=== PATIENT | male | born 1985 | race Caucasian/White ===

== ENCOUNTER → 2018-04-24 | Outpatient (REF) | payer OTHER ==
[2018-04-24 22:09] LABS: APPEARANCE, URINE CLEAR (CLEAR); BACTERIA, URINE AUTO NEGATIVE (NEGATIVE); BILIRUBIN, URINE AUTO NEGATIVE (NEGATIVE); BLOOD, URINE BLOOD NEGATIVE (NEGATIVE); COLOR, URINE STRAW (YELLOW); GLUCOSE, URINE (UA) AUTO NEGATIVE (NEGATIVE); KETONE, URINE AUTO NEGATIVE (NEGATIVE); LEUKOCYTE ESTERASE, URINE AUTO NEGATIVE (NEGATIVE); NITRITE, URINE AUTO NEGATIVE (NEGATIVE); PROTEIN, URINE AUTO NEGATIVE (NEGATIVE); RBC, URINE AUTO 0 /HPF (0-3); SPECIFIC GRAVITY URINE AUTO 1.004 (1.002-1.035); SQUAMOUS EPITHELIAL CELL UR AU 0 /HPF (0-6); UROBILINOGEN, URINE AUTO 0.2 mg/dL (0.0-2.0); WBC, URINE AUTO 0 /HPF (0-3)
[2018-04-24 23:35] LABS: CHLAMYDIA DNA AMPLIFICATION NEGATIVE (NEGATIVE); GC DNA AMPLIFICATION NEGATIVE (NEGATIVE)
== END ==
LOC: M LAB REF 10:34
DX: N39.0 Urinary tract infection, site not specified (principal)

== ENCOUNTER → 2018-04-26 | Outpatient (REF) | payer BC | LOC: M LAB REF 13:10 | DX: N50.9 Disorder of male genital organs, unspecified (principal) | CPT/HCPCS: 87186 ==

== ENCOUNTER → 2019-08-30 | Outpatient (REF) | payer OTHER | LOC: M LAB REF 09:22 | PROVIDERS: ATTEND Physician Assistant Medical | DX: J02.0 Streptococcal pharyngitis (principal) ==

== ENCOUNTER 2020-04-01 15:34 | Emergency (ER) | payer OTHER, BC ==
[~2020-04-01] VITALS: Ht 180.3 cm; Wt 83.0 kg
[2020-04-01] MEDS ORDERED: BUPR300T92 (15:44)
[2020-04-01] MEDS ORDERED: ESCITALOPRAM (15:44)
--- NOTE | 2020-04-01 16:57 | REP ---
LEFT SHOULDER, THREE VIEWS: There is no evidence of an acute fracture, dislocation or intrinsic bone disease. IMPRESSION: No fracture or dislocation. Electronically Signed by Pedro Watters MD 04/01/2020 05:08 P
[2020-04-01] MEDS ORDERED: NAPR-837 PO (17:39)
[2020-04-01 17:42] VITALS: BP 129/70
== END 2020-04-01 17:53 | disposition home or self-care (01) ==
LOC: M ED 15:34
DX: S49.92XA Unspecified injury of left shoulder and upper arm, initial encounter (principal); M75.102 Unspecified rotator cuff tear or rupture of left shoulder, not specified as traumatic; X50.0XXA Overexertion from strenuous movement or load, initial encounter; Y99.0 Civilian activity done for income or pay; R20.8 Other disturbances of skin sensation; F17.210 Nicotine dependence, cigarettes, uncomplicated; Z88.2 Allergy status to sulfonamides

== ENCOUNTER → 2020-05-08 | Outpatient (CLI) | payer BC, OTHER ==
[~2020-05-08] MED LIST: BUPR300T92; ESCITALOPRAM; NAPR-837 PO
--- NOTE | 2020-05-08 10:40 | REP ---
Clinical: Trauma. Rule out foreign body. Technique: AP, lateral, bilateral oblique views right hand . Findings: The osseous structures and joint spaces are intact and normal. There is no evidence for acute fracture or dislocation. Surrounding soft tissues are unremarkable. No subcutaneous emphysema or radiodense foreign body. Impression: No acute fracture or dislocation. Electronically Signed by Raheel Osman MD 05/08/2020 10:31 A
== END ==
LOC: M WUC 10:14
PROVIDERS: ATTEND Physician Assistant
DX: M79.641 Pain in right hand (principal)

== ENCOUNTER → 2020-07-02 | Outpatient (CLI) | payer OTHER ==
[~2020-07-02] MED LIST changes: +ISOVUE-300 61% 50ML VIAL As Ordered ONE; +PROHANCE 279.3MG/ML 5ML VIAL As Ordered ONE
--- NOTE | 2020-07-30 16:52 | REP ---
LEFT SHOULDER ARTHROGRAM The procedure was performed under the direct supervision of Dr. Avilez. The benefits and risks including, but not limited to pain, infection, bleeding, and anaphylaxis were explained to the patient and informed consent was obtained. FINDINGS: The left glenohumeral joint space was localized using fluoroscopic guidance. The skin was prepped and draped in a sterile fashion. 1% Lidocaine was used as a local anesthetic. Using fluoroscopic guidance a 22-gauge spinal needle was inserted and advanced into the joint. 0.5 mL of Isovue-300 was injected to verify placement. 11 mL of a solution containing 20 mL of sterile saline and 0.15 mL of ProHance was injected. The needle was removed and the patient was taken to MRI for postprocedural imaging. The patient tolerated the procedure well and there were no immediate complications. Less than 6 seconds of fluoroscopy time was utilized for this procedure. ANGI
--- NOTE | 2020-08-05 08:43 | REP ---
MR ARTHROGRAM LEFT SHOULDER HISTORY: Pain. TECHNIQUE: MR arthrography of the left shoulder is performed prior to and following arthrogram procedure. Multiple sequences are obtained in various planes. FINDINGS: Minimal tendinopathy/tendonitis is noted of the supraspinatus tendon. No rotator cuff tendon tear is seen. Minimal hypertrophic changes are seen at the acromioclavicular joint. Acromion is type 2. Biceps tendon is within the bicipital groove with no tenosynovitis. There is no Hill-Sachs deformity. The deltoid muscle demonstrates no abnormal signal. Biceps labral complex is intact. There is a diffuse tear of the posterior labrum. No SLAP tear is seen. There is homogeneous bone marrow signal. There is no bone marrow edema or occult fracture. There is a normal amount of joint fluid. There is no paralabral cyst. IMPRESSION: Minimal supraspinatus tendinopathy/tendonitis with no evidence of rotator cuff tendon tear. Diffuse tear of the posterior labrum. MTDD
== END ==
LOC: M RADPRO 06:24
PROVIDERS: ATTEND Physician Assistant
DX: M75.22 Bicipital tendinitis, left shoulder (principal); M25.512 Pain in left shoulder
CPT/HCPCS: 23350; 73223; 77002; A9576; Q9967

== ENCOUNTER → 2020-09-04 | Outpatient (CLI) | payer OTHER ==
[~2020-09-04] MED LIST changes: -ISOVUE-300 61% 50ML VIAL As Ordered ONE; -PROHANCE 279.3MG/ML 5ML VIAL As Ordered ONE
== END ==
LOC: M LABSMTC 10:09
PROVIDERS: ATTEND Orthopaedic Surgery
DX: Z01.818 Encounter for other preprocedural examination (principal); Z20.828 Contact with and (suspected) exposure to other viral communicable diseases

== ENCOUNTER 2021-05-11 07:57 | Emergency (ER) | payer BC, OTHER ==
[~2021-05-11] VITALS: Ht 180.3 cm; Wt 85.4 kg
[~2021-05-11 07:57] MED LIST changes: -CIPR7.5D2 AS; -IBUP80TA PO
[2021-05-11] MEDS ORDERED: CIPR7.5D2 AS (08:04)
[2021-05-11] MEDS ORDERED: IBUP80TA PO (08:04)
[2021-05-11] MEDS ORDERED: ACETAMINOPHEN 325 MG TAB PO ONE (10:00)
[2021-05-11 10:13] VITALS: BP 118/61
== END 2021-05-11 10:50 | disposition home or self-care (01) ==
LOC: M ED 07:57
DX: H60.90 Unspecified otitis externa, unspecified ear (principal); H66.90 Otitis media, unspecified, unspecified ear; Z88.2 Allergy status to sulfonamides

== ENCOUNTER → 2021-05-11 | Outpatient (REF) | payer OTHER, BC ==
[~2021-05-11] MED LIST changes: +CIPR7.5D2 AS; +IBUP80TA PO
== END ==
LOC: M LAB REF 14:41
PROVIDERS: ATTEND Otolaryngology
DX: H60.8X2 Other otitis externa, left ear (principal)

== ENCOUNTER → 2021-11-23 | Outpatient (REF) | payer OTHER, BC ==
[~2021-11-23] MED LIST changes: +CIPR7.5D2 AS; +IBUP80TA PO
== END ==
LOC: M LAB REF 16:46
PROVIDERS: ATTEND Physician Assistant
DX: R07.0 Pain in throat (principal)

== ENCOUNTER → 2023-10-12 | Outpatient (CLI) | payer BC, OTHER ==
[2023-10-12 16:46] LABS: BASO % 0.5 % (0.0-1.0); EOS % 0.5 % (0.0-3.0); HEMATOCRIT 49.8 % (42.0-52.0); HEMOGLOBIN 17.1 g/dl (13.5-17.5); LYMPH # 1.2 10^3/uL (1.5-5.0); MEAN CORPUSCULAR HEMOGLOBIN 32.1 pg (27.0-33.0); MEAN CORPUSCULAR HGB CONC 34.3 g/dl (32.0-36.5); MEAN CORPUSCULAR VOLUME 93.4 fl (80.0-96.0); MONO # 0.4 10^3/uL (0.0-0.8); MONO % 9.1 % (2.0-8.0); NEUTROPHILS # 2.7 10^3/uL (1.5-8.5); NEUTROPHILS % 62.7 % (36.0-66.0); PLATELET COUNT, AUTOMATED 254 10^3/uL (150-450); RED BLOOD COUNT 5.33 10^6/uL (4.30-6.10); WHITE BLOOD COUNT 4.3 10^3/uL (4.0-10.0)
[2023-10-12 17:23] LABS: ALBUMIN 4.1 G/DL (3.2-5.2); ALKALINE PHOSPHATASE 58 U/L (46-116); ALT/SGPT 34 U/L (7.0-40); AST/SGOT 20 U/L (<34); BILIRUBIN,TOTAL 0.9 MG/DL (0.3-1.2); BLOOD UREA NITROGEN 16 MG/DL (9-23); CALCIUM LEVEL 9.2 MG/DL (8.5-10.1); CARBON DIOXIDE LEVEL 28 MMOL/L (20-31); CHLORIDE LEVEL 105 MMOL/L (98-107); CHOLESTEROL LEVEL 119 MG/DL (<200); CHOLESTEROL RISK RATIO 3.02 (<5); CREATININE FOR GFR 1.24 MG/DL (0.70-1.30); FREE T4 1.27 NG/DL (0.89-1.76); GLOMERULAR FILTRATION RATE > 60.0 (>60); GLUCOSE, FASTING 121 MG/DL (60-100); HDL CHOLESTEROL 39.3 MG/DL (>40); LDL CHOLESTEROL 62.1 MG/DL (<100); NON-HDL-C 79.7 MG/DL; POTASSIUM SERUM 4.6 MMOL/L (3.5-5.1); SODIUM LEVEL 140 MMOL/L (136-145); THYROID STIMULATING HORMONE 0.872 uIU/ML (0.55-4.78); TOTAL 25(OH) VITAMIN D 31.9 NG/ML (20.0-100.0); TOTAL PROTEIN 6.8 G/DL (5.7-8.2); TRIGLYCERIDES LEVEL 88 MG/DL (<150)
[2023-10-12 17:47] LABS: HEMOGLOBIN A1c 4.8 % (4.0-6.0)
[2023-10-15 19:06] LABS: TESTOSTERONE FREE (DIRECT) 8.7 pg/mL (8.7-25.1)
== END ==
LOC: M WUC 12:27
PROVIDERS: ATTEND Physician Assistant
DX: E55.9 Vitamin D deficiency, unspecified (principal); Z13.29 Encounter for screening for other suspected endocrine disorder; Z13.220 Encounter for screening for lipoid disorders

== ENCOUNTER → 2023-11-21 | Outpatient (REF) | payer BC, OTHER | LOC: M LAB REF 13:47 | PROVIDERS: ATTEND Physician Assistant | DX: J02.9 Acute pharyngitis, unspecified (principal) ==